=== PATIENT | female | born 1955 | race Caucasian/White ===

== ENCOUNTER 2018-04-05 11:52 | Emergency (ER) | payer OTHER ==
[~2018-04-05] VITALS: Ht 167.6 cm; Wt 71.2 kg
[2018-04-05] MEDS ORDERED: INDOMETHACIN50 MG PO (12:50)
[2018-04-05] MEDS ORDERED: CYCLOBENZAPRINE10 MG PO (12:50)
[2018-04-05] MEDS ORDERED: PRAVACHOL20 MG PO (13:04)
[2018-04-05] MEDS ORDERED: NORTRIPTYLINE H25 MG PO (13:05)
[2018-04-05] MEDS ORDERED: MOBIC15 MG PO (13:06)
== END 2018-04-05 13:30 | disposition home or self-care (01) ==
LOC: ED 11:52
DX: M54.5 Low back pain (principal)
CPT/HCPCS: 72110; 81001; 96372; 99283; J1885

== ENCOUNTER 2020-06-15 10:01 | Emergency (ER) | payer MEDICARE, OTHER ==
[~2020-06-15] VITALS: Ht 167.6 cm; Wt 71.2 kg
[~2020-06-15 10:01] MED LIST: CYCLOBENZAPRINE10 MG PO; INDOMETHACIN50 MG PO; MOBIC15 MG PO; NORTRIPTYLINE H25 MG PO; PRAVACHOL20 MG PO
[2020-06-15] MEDS ORDERED: OMEPRAZOLE20 MG PO (10:17)
[2020-06-15] MEDS ORDERED: ESCITALOPRAM OX10 MG PO (10:17)
== END 2020-06-15 12:04 | disposition home or self-care (01) ==
LOC: ED 10:01
DX: S93.601A Unspecified sprain of right foot, initial encounter (principal); E78.5 Hyperlipidemia, unspecified; G47.00 Insomnia, unspecified; Z87.891 Personal history of nicotine dependence; Z79.899 Other long term (current) drug therapy; W10.9XXA Fall (on) (from) unspecified stairs and steps, initial encounter
CPT/HCPCS: 73630; 99283-25